=== PATIENT | female | born 1965 | race Caucasian/White ===

== ENCOUNTER 2025-03-26 11:02 | Emergency (ER) | payer BC ==
[~2025-03-26] VITALS: Ht 160 cm; Wt 65.0 kg
--- NOTE | 2025-03-26 11:59 | Physician Documentation ---
History of Present Illness ~ Chief Complaint: Leg Laceration Stated Complaint: FALL Time Seen by MD: 11:14 HPI The patient is seen Today with complaints of laceration to her right lateral thigh. Patient states this occurred just prior to arrival when she slipped and fell in her kitchen. The events however are seemingly unclear as she is a little vague in describing what happened. Patient states she maybe got caught on a hard piece of plastic. Patient has no other concern or complaint at this time. Patient states her last tetanus was likely well over five years ago. Tetanus Within 5 Years: No Medication Reconciliation Allergies: Coded Allergies: Sulfa (Sulfonamide Antibiotics) (Verified Allergy, Unknown, SWELLING & RASH, 05/16/17) Past Medical History Past Medical History: No Pertinent History Past Surgical History: noncontributory Smoking Status: Current some day smoker Alcohol Use: None Lives In: Home Review of Systems Constitutional: Denies: chills, fever, weakness Eyes: Denies: pain, blurred vision ENT: Denies: ear pain, nose pain, throat pain, mouth pain Respiratory: Denies: cough, shortness of breath Cardiovascular: Denies: chest pain, palpitations Gastrointestinal: Denies: abdominal pain, nausea, vomiting Genitourinary: Denies: burning, dysuria Female Genitalia: Denies: vaginal discharge, pelvic pain Neurological: Denies: headache, dizziness Musculoskeletal: Denies: pain, swelling Integumentary: Denies: rash, lesions Allergic/Immunologic: Denies: hives, itching Hematologic/Lymphatic: Denies: no symptoms reported Psychiatric: Denies: depression, anxiety Physical Exam Vital Signs: Temperature: 98.1, Source: Oral, Heart Rate: 78, Respiratory Rate: 15, BP: 160/85, Pulse Oximetry: 98, Weight: 65.050 Physical Exam General: Awake and Alert, no acute distress. HEENT: Conjunctiva pink, Sclera clear, Mucus Membranes moist. Neck: Supple without masses and tenderness. Resp: Unlabored. Lungs clear to auscultation bilaterally. Heart: Regular Rate and rhythm, normal S1 and S2 without murmur, rub or gallop. Musculoskeletal: On examination, the patient does have very large laceration to the midshaft of the right lateral thigh measuring approximately 12 cm in length and about 4 cm across. There is no active bleeding currently. Patient is neurovascularly intact distally. Motor function is intact distally. Extremities: No cyanosis,clubbing or edema. Skin: On examination, the patient does have very large laceration to the midshaft of the right lateral thigh measuring approximately 12 cm in length and about 4 cm across. There is no active bleeding currently. Patient is neurovascularly intact distally. Motor function is intact distally. Procedures Laceration/Wound Repair Laceration : Procedure Note Procedure note: 40 cc of 1% lidocaine with epinephrine was used to achieve local anesthesia of the laceration to the right lateral thigh measuring 12 cm in length. Patient tolerated well. Wound was copiously irrigated with normal saline and iodine. Three internal absorbable subcutaneous sutures were placed to approximate the edges of the wound. Then a running stitch was used to achieve closure which patient tolerated well. Nonadherent dressing and bulky bandage placed over laceration site. Progress Results/Orders Results/Orders Completed Orders - ARIEL ZAMBRANO Lidocaine 1% W/Epi 1:100,000 (Xylocaine (03/26/25 11:53) Tetanus & Diphtheria Vacc.- Td (Tetanus (03/26/25 13:10) Tetanus/Pertuss/Diph Acell/Pf (Boostrix (03/26/25 13:30) Medications Received in ER Medications (Trade) Dose Ordered Sig/Usha Route PRN Reason Start Time Stop Time Status Last Admin Dose Admin (Boostrix vaccine syringe) 0.5 ml ONCE ONCE IMVAC 03/26/25 13:30 03/26/25 13:31 DC 03/26/25 13:56 0.5 ML Vital Signs 03/26/25 11:07 Temp 98.1 Pulse 78 Resp 15 B/P (MAP) 160/85 Pulse Ox 98 Medical Decision Making Findings The patient is seen Today with complaints of laceration to her right lateral thigh. Patient states this occurred just prior to arrival when she slipped and fell in her kitchen. The events however are seemingly unclear as she is a little vague in describing what happened. Patient states she maybe got caught on a hard piece of plastic. Patient has no other concern or complaint at this time. Patient states her last tetanus was likely well over five years ago. Suture repair done by myself today was tolerated well today by patient of the laceration to the right lateral thigh. Patient will be started on Keflex 500 mg one tab 3 times a day for 10 days. Patient will return to ED or follow up with primary care for removal of sutures in 7-10 days. Shared decision-making utilized by patient today. Patient will return to ED with any worsening, c oncerning or changing symptoms. Differential Dx:Considerations: Include: Laceration, Fracture, Hematoma, N eurovascular injury, Retained foreign body Departure Disposition: HOME / SELF CARE / HOMELESS Impression: Primary Impression: Laceration Condition: Improved Discharge Instructions: Laceration Care, Adult Additional Instructions: Suture repair done by myself today was tolerated well today by patient of the laceration to the right lateral thigh. Patient will be started on Keflex 500 mg one tab 3 times a day for 10 days. Patient will return to ED or follow up with primary care for removal of sutures in 7-10 days. Shared decision-making utilized by patient today. Patient will return to ED with any worsening, concerning or changing symptoms. Referrals: NO PRIMARY CARE PROVIDER (PCP) Prescriptions Cephalexin*Monohydrate* (Keflex*) 500 Mg Capsule 1 CAP PO Q8H for 10 Days, #30 CAP Prov: ARIEL ZAMBRANO PAC 03/26/25 Signature Scribe Signature: No scribe Attestation: No scribe ARIEL ZAMBRANO PAC March 26, 2025 11:59
[2025-03-26] MEDS: LIDOcaine 1% W/epiNEPHrine 1:100,000 20ml vial SQ STA (12:05)
[2025-03-26] MEDS ORDERED: tetanus & diphtheria toxoid (Td) vaccine 0.5ml IMVAC ONE (13:10)
[2025-03-26] MEDS: TETanus/Pertussis (Acell)/Diphther VAC/PF (Tdap-Adult) 0.5ml syringe IMVAC ONE (13:56)
[2025-03-26] MEDS ORDERED: CEPH-585 PO (15:18)
[2025-03-26 15:19] VITALS: BP 126/86; PULSE 78; RESP 18; TEMP 98.5; O2SAT 99
== END 2025-03-26 15:21 | disposition home or self-care (01) ==
LOC: ER 11:02
DX: S71.111A Laceration without foreign body, right thigh, initial encounter (principal); F17.200 Nicotine dependence, unspecified, uncomplicated; Z88.2 Allergy status to sulfonamides; W01.0XXA Fall on same level from slipping, tripping and stumbling without subsequent striking against object, initial encounter; Y93.89 Activity, other specified; Y92.000 Kitchen of unspecified non-institutional (private) residence as the place of occurrence of the external cause; Y99.8 Other external cause status
CPT/HCPCS: 12004; 90471; 90715; 99283; A6222; A6258; A6446; A6449